=== PATIENT | female | born 1940 | race Caucasian/White ===

== ENCOUNTER → 2017-07-17 12:45 | Day surgery (SDC) | payer MEDICARE ==
[~2017-07-17 12:45] MED LIST: Bacitracin OINTMENT* 1 TUBE ONE; Buffered Lidocaine 0.9% SYRIN* 5 ML/SYR SYRINGE INTRADERM ONE; Buffered Lidocaine 0.9% SYRIN* 5 ML/SYR SYRINGE ONE; Ciprofloxacin 0.3% OPTH.SOL* 2.5 ML BTL ONE; Dexamethasone IV* 4 MG/ML 1 ML (4 MG) ONE; EPINEPHrine AMP 1 MG/ML ONE; Famotidine IV* 10 MG/ML 2 ML (20 mg) IV ONE; Famotidine IV* 10 MG/ML 2 ML (20 mg) ONE; Gelfoam 12-7 ADSORBABL SPONGE* 1 EA SPONGE ONE; Lidocaine 2% EPI 1:200000 MPF* 20 ML VIAL ONE; Lidocaine 2% PF * 5 ML VIAL ONE; Metoclopramide TAB* 10 MG ONE; Metoclopramide TAB* 10 MG PO ONE; Midazolam* 1 MG/ML 5 ML VIAL (5 MG) ONE; Ondansetron INJ* 2 MG/ML VIAL IV PRN; Ondansetron INJ* 2 MG/ML VIAL ONE; Propofol* 10 MG/ML 20 ML BTL IV PUSH ONE; fentaNYL* 50 MCG/ML 2 ML VIAL (100 MCG VIAL) IV PRN; fentaNYL* 50 MCG/ML 2 ML VIAL (100 MCG VIAL) ONE
[2017-07-17 15:46] VITALS: BP 131/68
--- NOTE | 2017-07-18 07:22 | OP ---
DATE OF OPERATION: 07/17/17 [facility] DATE OF : 38 SURGEON: Dr. Coates. ANESTHESIOLOGIST: Jose Penny MD ANESTHESIA: General PRE-OP DIAGNOSIS: Right ear, middle ear cholesteatoma. POST-OP DIAGNOSIS: Right ear, middle ear cholesteatoma. OPERATIVE PROCEDURE: Right ear tympanoplasty with cartilage graft. BRIEF HISTORY INDICATIONS: This 77-year-old female had a middle ear cholesteatoma with recurring otorrhea, conductive hearing loss, elected for surgical management. DESCRIPTION OF PROCEDURE: The patient was taken to the operating room, general anesthesia was given, the patient was intubated with LMA. Right ear was prepped and draped in the usual fashion. Examination under microscope showed a middle ear cholesteatoma. The annulus was intact; however, there was significant amount of epithelial debris in the middle ear, which was easily cleaned out leaving a defect approximately 50 to 60% of the pars tensa. This extended posterosuperiorly along the annulus and about the 6 o'clock position. Cleaned out over the incudostapedial joint, which was clean, and palpation of the malleolus showed good mobility of the incudostapedial joint and intact incudostapedial mobility with a round window reflex. With this in mind, I harvested a piece of cartilage graft from the conchal cartilage and then a piece of fascia from the temporalis fascia. I placed the cartilage between the malleus over the posterior superior quadrant where the retraction had been to support any further collapse and then I grafted with the temporalis fascia, the rest of the tympanic membranes in underlay. The middle ear was packed with Gelfoam as was lateral to the graft, and subsequently, Floxin was instilled in the ear, a small cotton ball was applied. The patient was awakened and sent to recovery room in stable condition. Instrument and sponge counts correct. Blood loss minimal. [id number]/[facility] #: [id number] [facility]
== END | disposition home or self-care (01) ==
LOC: OR 12:45
PROVIDERS: ATTEND Otolaryngology
DX: H71.91 Unspecified cholesteatoma, right ear (principal); I10 Essential (primary) hypertension; D32.9 Benign neoplasm of meninges, unspecified
CPT/HCPCS: 88304; A9270-GY; J0171; J1100; J2250; J2405; J2704; J3010